=== PATIENT | female | born 1955 | race Caucasian/White ===

== ENCOUNTER 2022-06-11 07:34 | Emergency (ER) | payer OTHER ==
[~2022-06-11] VITALS: Ht 167.6 cm; Wt 79.4 kg
[2022-06-11 07:45] VITALS: BP 121/78
[2022-06-11] MEDS ORDERED: FAMOTIDINE 20 MG/2 ML VIAL IVP ONE (08:00)
[2022-06-11 08:57] LABS: EOSINOPHILS % (AUTO) 0.2 % (0.0-4.0); HEMATOCRIT 41.8 % (36-48); HEMOGLOBIN 14.5 g/dL (12.0-16.0); LYMPHOCYTES # (AUTO) 1.1 K/uL (2.5-16.5); LYMPHOCYTES % (AUTO) 25.7 % (20.5-51.1); MEAN CORPUSCULAR HEMOGLOBIN 34 pg (27-31); MEAN CORPUSCULAR HGB CONC 35 g/dL (33-37); MEAN CORPUSCULAR VOLUME 97.2 fL (80-94); MONOCYTES # (AUTO) 0.3 K/uL (0.8-1.0); MONOCYTES % (AUTO) 6.2 % (1.7-9.3); NEUTROPHILS # (AUTO) 2.9 K/uL (1.8-7.7); NEUTROPHILS % (AUTO) 66.9 % (42.2-75.2); PLATELET COUNT (AUTO) 138 K/uL (140-450); RED CELL DISTRIBUTION WIDTH 13.7 % (11.6-13.7); WHITE BLOOD COUNT (AUTO) 4.3 K/uL (4.8-10.8)
[2022-06-11 09:15] LABS: ALBUMIN 4.2 g/dL (3.4-5.0); ANION GAP 14.2 (8-16); ASPARTATE AMINOTRANSFERASE 19 U/L (15-37); CARBON DIOXIDE 27.6 mmol/L (21-32); CHLORIDE 101 mmol/L (98-107); CREATININE 0.6 mg/dL (0.6-1.3); GFR ARICAN-AMERICAN 128 mL/min (>90); GLUCOSE 138 mg/dL (74-106); LIPASE 76 U/L (73-393); POTASSIUM 3.8 mmol/L (3.5-5.1); SODIUM SERUM 139 mmol/L (136-145); UREA NITROGEN, BLOOD 4 mg/dL (7-18)
[2022-06-11] MEDS ORDERED: DICYCLOMINE HCL LIQUID 20 MG, ALUMINUM HYD/MAG/SIMETHICONE 30 ML, LIDOCAINE VISCOUS 2% ... PO ONE ×3 (09:50)
[2022-06-11] MEDS ORDERED: ONDANSETRON 4 MG ODT PO ONE (09:55)
[2022-06-11] MEDS ORDERED: LORazepam 2 MG/ML VIAL IVP ONE (09:55)
[2022-06-11] MEDS ORDERED: MORPHINE SULFATE 4 MG/ML SYR IVP ONE (09:55)
[2022-06-11] MEDS ORDERED: ALUMINUM HYD/MAG/SIMETHICONE 30 ML UDC ONE (10:01)
[2022-06-11] MEDS ORDERED: DICYCLOMINE HCL LIQUID 10 MG/5 ML UDC ONE (10:01)
[2022-06-11] MEDS ORDERED: OMEP40EC24 PO (10:16)
[2022-06-11] MEDS ORDERED: SUCR1TAB35 PO (10:16)
[2022-06-11] MEDS ORDERED: ONDA-188 SL (10:16)
[2022-06-11 11:08] VITALS: BP 129/69
== END 2022-06-11 11:08 | disposition home or self-care (01) ==
LOC: MED 07:34
DX: K21.9 Gastro-esophageal reflux disease without esophagitis (principal); F41.9 Anxiety disorder, unspecified; Z79.899 Other long term (current) drug therapy
CPT/HCPCS: 36415; 71045; 80053; 83690; 84484; 85025; 93005; 96374; 96375; 99285; J2060; J2270; J3490; Q0092; Q0162